=== PATIENT | female | born 1960 | race Caucasian/White ===

== ENCOUNTER 2018-01-29 08:57 | Emergency (ER) ==
[2018-01-29 09:13] VITALS: BP 152/95; TEMP 97.2; BMI 29.0
--- NOTE | 2018-01-29 10:02 | DI ---
EXAM: Radiographs, right ankle HISTORY: Initial presentation for right ankle injury. COMPARISON: None available. TECHNIQUE: Three views. FINDINGS: There is suggestion of a tiny osseous fragment just distal to the tip of the lateral malle olus. There is lateral ankle soft tissue swelling. No other fractures are seen. Degenerative asif es present throughout the dorsal aspect of the hindfoot and midfoot. IMPRESSION: Suspect tiny displaced chip fracture of the lateral malleolus.
--- NOTE | 2018-01-29 10:03 | ED.PDOC ---
General ED Provider: Dr. SAMANTHA SANDERS Chief Complaint: Ankle Pain/Injury Stated Complaint: ankle pain right side Time Seen by Physician: 09:00 (denied any other injury/pain) Information Source: Patient Exam Limitations: No limitations Primary Care Provider: YESY FRANKLIN Nursing and Triage Documentation Reviewed and Agree: Yes Reviewed sepsis parameters & appropriate labs ordered?: Yes System Inflammatory Response Syndrome: Not Applicable Sepsis Protocol: For patient's 13 years and over: Temp is 96.8 and below OR 101 and greater Pulse >90 BPM Resp >20/minute Acutely Altered Mental Status Are patient's symptoms suggestive of a new infection, such as: -Pneumonia -Skin, Soft Tissue -Endocarditis -UTI -Bone, Joint Infection -Implantable Device -Acute Abdominal Infection -Wound Infection -Meningitis -Blood Stream Catheter Infection -Unknown Musculoskeletal Complaint Exam - Ankle/Foot Complaint/Exam Location of Injury: Reports: Right, Ankle, Foot Mechanism of Injury: Reports: Trauma (rolled ankle) Onset/Duration: 3 days ago Symptoms Are: Reports: Still present Onset of Pain: Reports: Immediate Initial Severity: Moderate Current Severity: Moderate Location: Reports: Discrete Character: Reports: Aching, Spasmodic Alleviating: Reports: Rest Aggravating: Reports: Movement Able to Bear Weight: Yes Associated Signs and Symptoms: Reports: Swelling, Redness, Bruising. Denies: Fever, Weakness, Numbness, Tingling (see photos) Gout Risk Factors: Reports: >40 years old Related Surgical History: Reports: None Achilles Tendon Abnormality: No Tenderness: Present: Lateral malleolus Differential Diagnosis: Closed Fracture, Sprain, Strain Review of Systems - Review Of Systems Constitutional: Reports: No symptoms Eyes: Reports: No symptoms Ears, Nose, Mouth, Throat: Reports: No symptoms Respiratory: Reports: No symptoms Cardiac: Reports: No symptoms GI: Reports: No symptoms : Reports: No symptoms Musculoskeletal: Reports: Joint pain (right ankle ) Skin: Reports: No symptoms Neurological: Reports: No symptoms Endocrine: Reports: No symptoms Hematologic/Lymphatic: Reports: No symptoms All Other Systems: Reviewed and Negative Past Medical History - Past Medical History Previously Healthy: Yes Endocrine: Reports: Dyslipidemia Cardiovascular: Reports: Hypertension Respiratory: Reports: None Hematological: Reports: None Gastrointestinal: Reports: None Genitourinary: Reports: None Neuro/Psych: Reports: None Musculoskeletal: Reports: None Cancer: Reports: None Last Menstrual Period: menopause - Surgical History General Surgical History: Reports: None - Family History Family History: Reports: None - Social History Smoking Status: Current every day smoker, Light tobacco smoker Hx Substance Use: Yes Alcohol Screening: None Physical Exam - Physical Exam Appearance: Well-appearing, No pain distress, Well-nourished Eyes: TUYET, EOMI, Conjunctiva clear ENT: Ears normal, Nose normal, Oropharynx normal Respiratory: Airway patent, Breath sounds clear, Breath sounds equal, Respirations nonlabored Cardiovascular: RRR, Pulses normal, No rub, No murmur GI/: Soft, Nontender, No masses, Bowel sounds normal, No Organomegaly Musculoskeletal: Limited ROM, Edema (perfecto ) Skin: Warm, Dry, Normal color Neurological: Sensation intact, Motor intact, Reflexes intact, Cranial nerves intact, Alert, Oriented Psychiatric: Affect appropriate, Mood appropriate Critical Care Note - Critical Care Note Total Time (mins): 0 Course - Course Orders, Labs, Meds: Orders Category Date Time Status ANKLE, RIGHT MIN 3 VIEWS Stat RADS 01/29/18 09:08 Taken FOOT, RIGHT 3 VIEWS Stat RADS 01/29/18 09:08 Taken Vital Signs: Temp Pulse Resp BP Pulse Ox 01/29/18 08:58 97.2 F L 97 H 16 152/95 H 98 Departure - Departure Time of Disposition: 11:00 Disposition: HOME SELF-CARE Discharge Problem: Right ankle sprain Qualifiers: Involved ligament of ankle: unspecified ligament Instructions: Ankle Sprain (ED) Condition: Good Pt referred to PMD for follow-up: Yes IPMP verified?: No Additional Instructions: Please call your Family Physician as soon as possible to schedule a follow-up appointment.use crutches at all times se your MD if pain and discomfort persists NEED MRI Allergies/Adverse Reactions: Allergies No Known Drug Allergies Adverse Reaction (Verified 01/29/18 09:05) Home Medications: Ambulatory Orders Nifedipine 60 mg PO DAILY 03/05/13 Gabapentin 300 mg PO TID 02/01/14 Tramadol HCl [Ultram] 50 - 100 mg PO Q8H PRN 02/01/14 Aspirin [Aspirin EC] 81 mg PO DAILY 01/29/18 Cholecalciferol (Vitamin D3) [Vitamin D3] 2,000 unit PO DAILY 01/29/18 Doxepin HCl 25 mg PO BEDTIME 01/29/18 Fluticasone Propionate [Flonase] 2 spray NS DAILY 01/29/18 Hydrocodone/Acetaminophen [[place] 10-325 Tablet] 1 each PO Q8HR #12 tablet Loratadine 10 mg PO DAILY 01/29/18 Multivitamin with Minerals [Daily Vitamin Formula-Minerals] 1 each PO DAILY 02/10 [place]-3/Dha/Epa/Fish Oil [Fish Oil 1,000 mg Softgel] 2 each PO DAILY 01/29/18 Paroxetine HCl 10 mg PO DAILY 01/29/18 Pravastatin Sodium [Pravachol] 40 mg PO DAILY 01/29/18 Disposition Discussed With: Patient
--- NOTE | 2018-01-29 10:06 | DI ---
EXAM: Right foot three view HISTORY: Injury COMPARISON: None FINDINGS/IMPRESSION: No fracture or dislocation. Moderate arthropathy of the midfoot. Small planta r calcaneal spur. No focal soft tissue abnormality.
== END 2018-01-29 10:35 | disposition home or self-care (01) ==
LOC: ED 08:57
DX: S82.61XA Displaced fracture of lateral malleolus of right fibula, initial encounter for closed fracture (principal); F17.210 Nicotine dependence, cigarettes, uncomplicated
CPT/HCPCS: 99283

== ENCOUNTER 2018-05-27 12:45 | Emergency (ER) ==
[2018-05-27 13:21] VITALS: BP 176/104; TEMP 97; BMI 27.5
--- NOTE | 2018-05-27 15:22 | CT ---
EXAM: CT of the head without contrast History: Dizziness, head trauma. Comparison: Head CT 03/01/2014 Technique: Multiplanar CT images through the head were obtained without the administration of IV con trast Findings: The visualized paranasal sinuses and mastoid air cells are clear in general. No acute calv arial abnormalities. Intracranially the ventricular and cisternal spaces are normal in size, shape and configuration for a patient of this age. No dominant mass or midline shift. No hydrocephalous. No acute intracranial hemorrhage or abnormal extraaxial fluid collections. Impression: No acute intracranial process
--- NOTE | 2018-05-27 16:36 | ED.PDOC ---
General ED Provider: Dr. IGLESIA BURCH Chief Complaint: Fall Stated Complaint: Soft scalp injury to lt parietal occipital region . Patient indicated in January she injured her Rt ankle resulting in weakness. Has bilat peripheral neruopathy. She stated she was decended steps and slipped.Caught herself and struck the back of her head in the rt parietal region resuling in pain and swelling. Has been experiencing dizziness and a "mushy feeling" along rt parietal occipital region. 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 Time Seen by Physician: 14:15 Mode of Arrival: Walk-In Information Source: Patient Exam Limitations: No limitations Primary Care Provider: YESY FRANKLIN Nursing and Triage Documentation Reviewed and Agree: Yes Does patient meet sepsis criteria?: No If yes, has appropriate treatment been initiated?: No System Inflammatory Response Syndrome: Not Applicable Sepsis Protocol: For patient's 13 years and over: Temp is 96.8 and below OR 101 and greater Pulse >90 BPM Resp >20/minute Acutely Altered Mental Status Are patient's symptoms suggestive of a new infection, such as: -Pneumonia -Skin, Soft Tissue -Endocarditis -UTI -Bone, Joint Infection -Implantable Device -Acute Abdominal Infection -Wound Infection -Meningitis -Blood Stream Catheter Infection -Unknown Review of Systems - Review Of Systems Constitutional: Reports: No symptoms Eyes: Reports: No symptoms Ears, Nose, Mouth, Throat: Reports: No symptoms Respiratory: Reports: No symptoms Cardiac: Reports: No symptoms GI: Reports: No symptoms : Reports: No symptoms Musculoskeletal: Reports: No symptoms Skin: Reports: No symptoms Neurological: Reports: No symptoms Endocrine: Reports: No symptoms Hematologic/Lymphatic: Reports: No symptoms All Other Systems: Reviewed and Negative Past Medical History - Past Medical History Previously Healthy: Yes Endocrine: Reports: Dyslipidemia Cardiovascular: Reports: Hypertension Respiratory: Reports: None Hematological: Reports: None Gastrointestinal: Reports: None Genitourinary: Reports: None Neuro/Psych: Reports: None Musculoskeletal: Reports: None Cancer: Reports: None Last Menstrual Period: n/a - Surgical History General Surgical History: Reports: None - Family History Family History: Reports: None - Social History Smoking Status: Current every day smoker, Light tobacco smoker Hx Substance Use: Yes Alcohol Screening: None Physical Exam - Physical Exam Appearance: Well-appearing, No pain distress, Well-nourished Ill-appearing: Mild Pain Distress: Mild Eyes: TUYET, EOMI, Conjunctiva clear ENT: Ears normal, Nose normal, Oropharynx normal Respiratory: Airway patent, Breath sounds clear, Breath sounds equal, Respirations nonlabored Cardiovascular: RRR, Pulses normal, No rub, No murmur GI/: Soft, Nontender, No masses, Bowel sounds normal, No Organomegaly Musculoskeletal: Normal strength, ROM intact, No edema, No calf tenderness, Edema (rt scalp parietal region) Skin: Warm, Dry, Normal color Neurological: Sensation intact, Motor intact, Reflexes intact, Cranial nerves intact, Alert, Oriented Psychiatric: Affect appropriate, Mood appropriate Interpretation - Radiology Interpretation Radiology Results: Negative Exam Interpreted: CT Scan Critical Care Note - Critical Care Note Total Time (mins): 0 Course - Course Hematology/Chemistry: 05/27/18 15:00 05/27/18 15:00 Orders, Labs, Meds: Lab Review 05/27/18 05/27/18 15:00 15:00 WBC 9.03 RBC 4.71 Hgb 15.6 Hct 45.3 MCV 96.2 MCH 33.1 H MCHC 34.4 RDW Coeff of Doyle 13.2 Plt Count 276 Immature Gran % (Auto) 0.2 Neut % (Auto) 49.6 Lymph % (Auto) 39.9 [place] % (Auto) 7.1 Eos % (Auto) 2.8 Baso % (Auto) 0.4 Immature Gran # (Auto) 0.0 Neut # (Auto) 4.5 Lymph # (Auto) 3.6 H Bennett # (Auto) 0.6 Eos # (Auto) 0.3 Baso # (Auto) 0.0 Sodium 138.3 Potassium 4.24 Chloride 101.2 Carbon Dioxide 29.6 Anion Gap 11.74 BUN 14.4 Creatinine 0.81 Estimated GFR (MDRD) 73.00 BUN/Creatinine Ratio 17.77 Glucose 93.7 Calcium 10.58 H Total Bilirubin 0.53 AST 80.4 H ALT 42.0 H Alkaline Phosphatase 114.5 Total Protein 8.26 H Albumin 5.04 H Globulin 3.22 Albumin/Globulin Ratio 1.56 Orders Category Date Time Status CBC W/ AUTO DIFF Stat LAB 05/27/18 15:00 Completed CMP [COMPREHENSIVE METABOLIC PANEL] Stat LAB 05/27/18 15:[address] HEAD W/O CONTRAST Stat RADS 05/27/18 14:37 Completed Vital Signs: Temp Pulse Resp BP Pulse Ox 05/27/18 13:16 97.0 F L 78 20 176/104 H 97 Departure - Departure Time of Disposition: 16:15 Disposition: HOME SELF-CARE Discharge Problem: Scalp contusion, Dizziness, Hypercalcemia, Elevated liver enzymes, Hyperproteinemia Instructions: Scalp Contusion in Adults (ED), Hypercalcemia (ED) Condition: Good Pt referred to PMD for follow-up: Yes IPMP verified?: No Additional Instructions: Schedule apt to see PCP for re evaluation of current condition Evaluation of elevated calcium, protein levels and liver enzmes Allergies/Adverse Reactions: Allergies No Known Drug Allergies Adverse Reaction (Verified 05/27/18 13:21) Home Medications: Ambulatory Orders Nifedipine 60 mg PO DAILY 03/05/13 Gabapentin 300 mg PO TID 02/01/14 Tramadol HCl [Ultram] 50 - 100 mg PO Q8H PRN 02/01/14 Aspirin [Aspirin EC] 81 mg PO DAILY 01/29/18 Cholecalciferol (Vitamin D3) [Vitamin D3] 2,000 unit PO DAILY 01/29/18 Doxepin HCl 25 mg PO BEDTIME 01/29/18 Fluticasone Propionate [Flonase] 2 spray NS DAILY 01/29/18 Hydrocodone/Acetaminophen [[place] 10-325 Tablet] 1 each PO Q8HR #12 tablet Loratadine 10 mg PO DAILY 01/29/18 Multivitamin with Minerals [Daily Vitamin Formula-Minerals] 1 each PO DAILY 02/10 [place]-3/Dha/Epa/Fish Oil [Fish Oil 1,000 mg Softgel] 2 each PO DAILY 01/29/18 Paroxetine HCl 10 mg PO DAILY 01/29/18 Pravastatin Sodium [Pravachol] 40 mg PO DAILY 01/29/18 Transfer Form Completed: Yes Disposition Discussed With: Patient
== END 2018-05-27 17:06 | disposition home or self-care (01) ==
LOC: ED 12:45
DX: S00.03XA Contusion of scalp, initial encounter (principal); E88.09 Other disorders of plasma-protein metabolism, not elsewhere classified; E83.52 Hypercalcemia; R94.5 Abnormal results of liver function studies; R42 Dizziness and giddiness; I10 Essential (primary) hypertension; E78.5 Hyperlipidemia, unspecified; Z79.899 Other long term (current) drug therapy; W10.9XXA Fall (on) (from) unspecified stairs and steps, initial encounter; F17.210 Nicotine dependence, cigarettes, uncomplicated
CPT/HCPCS: 36415; 80053; 85025; 99283

== ENCOUNTER 2018-11-09 12:59 | Emergency (ER) ==
[2018-11-09 13:08] VITALS: BP 158/88; TEMP 97.5; BMI 26.2
== END 2018-11-09 14:37 | disposition left against medical advice (07) ==
LOC: ED 12:59
DX: R42 Dizziness and giddiness (principal); R53.1 Weakness; F17.210 Nicotine dependence, cigarettes, uncomplicated; M54.9 Dorsalgia, unspecified

== ENCOUNTER 2018-11-11 11:53 | Emergency (ER) ==
[2018-11-11 11:53] VITALS: BMI 26.2
[2018-11-11 12:02] VITALS: BP 143/79; TEMP 98.2
--- NOTE | 2018-11-11 12:19 | ED.PDOC ---
General ED Provider: Dr. IGLESIA RODRIGUEZ MD Chief Complaint: Non-specific Complaint Stated Complaint: diarrhea and nausea z 1 wek Time Seen by Physician: 12:11 Mode of Arrival: Walk-In Information Source: Patient Exam Limitations: No limitations Nursing and Triage Documentation Reviewed and Agree: Yes Does patient meet sepsis criteria?: No If yes, has appropriate treatment been initiated?: Yes System Inflammatory Response Syndrome: Not Applicable Sepsis Protocol: For patient's 13 years and over: Temp is 96.8 and below OR 101 and greater Pulse >90 BPM Resp >20/minute Acutely Altered Mental Status Are patient's symptoms suggestive of a new infection, such as: -Pneumonia -Skin, Soft Tissue -Endocarditis -UTI -Bone, Joint Infection -Implantable Device -Acute Abdominal Infection -Wound Infection -Meningitis -Blood Stream Catheter Infection -Unknown Review of Systems - Review Of Systems Constitutional: Reports: No symptoms Eyes: Reports: No symptoms Ears, Nose, Mouth, Throat: Reports: No symptoms Respiratory: Reports: No symptoms Cardiac: Reports: No symptoms GI: Reports: Diarrhea, Nausea : Reports: No symptoms Musculoskeletal: Reports: No symptoms Skin: Reports: No symptoms Neurological: Reports: No symptoms Endocrine: Reports: No symptoms Hematologic/Lymphatic: Reports: No symptoms All Other Systems: Reviewed and Negative Past Medical History - Past Medical History Previously Healthy: Yes Endocrine: Reports: Dyslipidemia Cardiovascular: Reports: Hypertension Respiratory: Reports: None Hematological: Reports: None Gastrointestinal: Reports: None Genitourinary: Reports: None Neuro/Psych: Reports: None Musculoskeletal: Reports: None Cancer: Reports: None Last Menstrual Period: unknown - Surgical History General Surgical History: Reports: None - Family History Family History: Reports: None - Social History Smoking Status: Current every day smoker, Light tobacco smoker Hx Substance Use: No Alcohol Screening: None Physical Exam - Physical Exam Appearance: Well-nourished, Obese Ill-appearing: Mild Pain Distress: None Eyes: TUYET, EOMI, Conjunctiva clear ENT: Ears normal, Nose normal, Oropharynx normal Neck: Supple Respiratory: Airway patent, Breath sounds clear, Breath sounds equal, Respirations nonlabored Cardiovascular: RRR, Pulses normal, No rub, No murmur, Tachycardia GI/: Soft, Nontender, No masses, Bowel sounds normal, No Organomegaly Musculoskeletal: Normal strength, ROM intact, No edema, No calf tenderness Skin: Warm, Dry, Normal color Neurological: Sensation intact, Motor intact, Reflexes intact, Cranial nerves intact, Alert, Oriented Critical Care Note - Critical Care Note Total Time (mins): 0 Course - Course Hematology/Chemistry: 11/11/18 12:30 11/11/18 12:30 Orders, Labs, Meds: Lab Review 11/11/18 11/11/18 12:30 12:30 WBC 6.29 RBC 4.15 L Hgb 14.0 Hct 40.0 MCV 96.4 MCH 33.7 H MCHC 35.0 RDW Coeff of [place] 13.2 Plt Count 246 Immature Gran % (Auto) 0.3 Neut % (Auto) 62.5 Lymph % (Auto) 26.7 [place] % (Auto) 8.9 Eos % (Auto) 1.1 Baso % (Auto) 0.5 Immature Gran # (Auto) 0.0 Neut # (Auto) 3.9 Lymph # (Auto) 1.7 [place] # (Auto) 0.6 Eos # (Auto) 0.1 Baso # (Auto) 0.0 Sodium 135.5 Potassium 3.68 Chloride 99.8 Carbon Dioxide 26.1 Anion Gap 13.28 BUN 18.1 H Creatinine 0.82 Estimated GFR (MDRD) 72.00 BUN/Creatinine Ratio 22.07 Glucose 133.1 H Calcium 10.09 Total Bilirubin 0.65 AST 50.0 H ALT 47.3 H Alkaline Phosphatase 91.0 Total Protein 7.55 Albumin 4.62 Globulin 2.93 Albumin/Globulin Ratio 1.57 Orders Category Date Time Status IV ACCESS ONCE CARE 11/11/18 12:19 Active CBC W/ AUTO DIFF Stat LAB 11/11/18 12:30 Completed CMP [COMPREHENSIVE METABOLIC PANEL] Stat LAB 11/11/18 12:30 Completed Ondansetron HCl/Pf [Zofran 4 mg/2 ml] MEDS 11/11/18 14:02 Discontinued 4 mg IVP ONCE STA Ringers Lactated Solution [Lactated Ringers] 1,000 ml MEDS 11/11/18 12:20 Discontinued IV BOLUS Medications Discontinued Medications Generic Name Dose Route Start Last Admin Trade Name Freq PRN Reason Stop Dose Admin Lactated Ringer's 1,000 mls @ 1,000 mls/hr 11/11/18 12:20 11/11/18 12:50 Lactated Ringers IV 11/11/18 13:19 1,000 mls/hr BOLUS STA Administration Ondansetron HCl 4 mg 11/11/18 14:02 11/11/18 14:07 Zofran 4 Mg/2 Ml IVP 11/11/18 14:03 4 mg ONCE STA Administration Vital Signs: Temp Pulse Resp BP Pulse Ox 11/11/18 11:53 98.2 F 111 H 20 143/79 H 98 Departure - Departure Time of Disposition: 14:45 Disposition: HOME SELF-CARE Discharge Problem: Gastroenteritis Instructions: Gastroenteritis (ED) Condition: Good Pt referred to PMD for follow-up: Yes IPMP verified?: No Prescriptions: Promethazine HCl [Phenergan Tab] 25 mg PO Q6H 7 Days #10 tablet NS Allergies/Adverse Reactions: Allergies No Known Drug Allergies Adverse Reaction (Verified 11/11/18 12:02) Home Medications: Ambulatory Orders Nifedipine 90 mg PO DAILY 03/05/13 Gabapentin 300 mg PO TID 02/01/14 Aspirin [Aspirin EC] 81 mg PO DAILY 01/29/18 Cholecalciferol (Vitamin D3) [Vitamin D3] 2,000 unit PO DAILY 01/29/18 Fluticasone Propionate [Flonase] 2 spray NS DAILY 01/29/18 Multivitamin with Minerals [Daily Vitamin Formula-Minerals] 1 each PO DAILY 02/10 [place]-3/Dha/Epa/Fish Oil [Fish Oil 1,000 mg Softgel] 2 each PO DAILY 01/29/18 Paroxetine HCl 20 mg PO DAILY 01/29/18 Pravastatin Sodium [Pravachol] 40 mg PO DAILY 01/29/18 Zolpidem Tartrate 10 mg PO BEDTIME 11/09/18 Promethazine HCl [Phenergan Tab] 25 mg PO Q6H 7 Days #10 tablet NS 11/11/18
[2018-11-11] MEDS ORDERED: LACTATED RINGERS 1,000 ML IV STA (12:20)
[2018-11-11] MEDS ORDERED: ZOFRAN 4 MG/2 ML IVP STA (14:02)
== END 2018-11-11 14:47 | disposition home or self-care (01) ==
LOC: ED 11:53
DX: R19.7 Diarrhea, unspecified (principal); R11.0 Nausea; Z72.0 Tobacco use; K52.9 Noninfective gastroenteritis and colitis, unspecified
CPT/HCPCS: 36415; 80053; 85025; 96361; 96374; 99283

== ENCOUNTER 2018-11-30 08:09 | Emergency (ER) ==
[2018-11-30 08:13] VITALS: BP 183/130; TEMP 97.5; BMI 26.5
--- NOTE | 2018-11-30 09:17 | CT ---
EXAM: CT scan of the abdomen and pelvis without contrast History pain TECHNIQUE: Helical imaging of the abdomen pelvis was performed without contrast. 3 mm thin axial im ages and coronal and sagittal reconstructions were provided for interpretation. Comparison CT scan of the abdomen and pelvis without contrast dated 03/01/2014. FINDINGS: The liver, spleen, pancreas, adrenal glands and kidneys appear normal. The proximal urete rs are normal size. There is a distal left ureteral calculus seen on axial image number 130. The le mirna measures approximately 3 mm AP, 2-3 mm transverse, 2 mm in height. There is no significant dila tation of the left ureter or calyces of the left kidney. The small and large bowel loops are normal caliber. There is no free air. The helical images obtained through the pelvis demonstrate a normal appearance of the rectum, urinary bladder. There is no free fluid seen within the pelvis. Scattered diverticula are seen within the descending colon and sigmoid colon without acute inflammation. Lung bases are clear. No lytic or bl astic lesions are seen within the osseous structures. The appendix appears normal. IMPRESSION: There is a small distal left ureteral calculus measuring up to 3 mm AP maximum not causi ng hydronephrosis or dilatation of the left ureter. There is no bowel obstruction. Mild diverticular disease of the distal colon without acute formation.
--- NOTE | 2018-11-30 09:35 | ED.PDOC ---
General ED Provider: Dr. SAMANTHA SANDERS Chief Complaint: Nausea/Vomiting Stated Complaint: NAUSEA, VOMITING, ANXIETY Time Seen by Physician: 08:12 (SEEN WITH NURSE AT ALL TIMES NO INJURY TO THE ABDOMEN ) Mode of Arrival: Walk-In Information Source: Patient Primary Care Provider: YESY FRANKLIN Referred to ED by: Other (UNDER STRESS DUE TO FINANCES ) Nursing and Triage Documentation Reviewed and Agree: Yes Does patient meet sepsis criteria?: No System Inflammatory Response Syndrome: Not Applicable Sepsis Protocol: For patient's 13 years and over: Temp is 96.8 and below OR 101 and greater Pulse >90 BPM Resp >20/minute Acutely Altered Mental Status Are patient's symptoms suggestive of a new infection, such as: -Pneumonia -Skin, Soft Tissue -Endocarditis -UTI -Bone, Joint Infection -Implantable Device -Acute Abdominal Infection -Wound Infection -Meningitis -Blood Stream Catheter Infection -Unknown GI Complaint Exam - Abdominal Pain Complaint/Exam Onset: Gradual Duration: 1 DAY Symptoms Are: Still present Timing: Intermittent Initial Severity: Mild Current Severity: Mild Location of Pain: Diffuse Character: Reports: Dull Aggravating: Reports: None Alleviating: Reports: None Associated Signs and Symptoms: Reports: Nausea, Vomiting. Denies: Diaphoresis, Fever, Cough, Chest pain, Dizziness, Back pain, Constipation, Blood in stool, Dysuria, Urinary frequency, Decreased urine output, Decreased appetite, Vaginal bleeding, Vaginal discharge, Diarrhea, Sore throat, Decreased activity Related History: Reports: Similar episode AAA Risk Factors: Reports: None Cardiac Risk Factors: Reports: None Ectopic Risk Factors: Reports: None Ovarian Torsion Risk Factors: Reports: None Surgical Obstruction Risk Factors: Reports: None Related Surgical History: Reports: None Patient Rh Status: Unknown Abdominal Findings: Present: None Differential Diagnoses: Appendicitis, Bowel Obstruction, Constipation, Diverticulitis, Gastroenteritis, Hepatitis, Pancreatitis, Irritable Bowel Syndrome, Renal Colic, GB, PUD, UTI, Ovarian Cyst Review of Systems - Review Of Systems Constitutional: Reports: No symptoms Eyes: Reports: No symptoms Ears, Nose, Mouth, Throat: Reports: No symptoms Respiratory: Reports: No symptoms Cardiac: Reports: No symptoms GI: Reports: Abdominal pain : Reports: No symptoms Musculoskeletal: Reports: No symptoms Skin: Reports: No symptoms Neurological: Reports: No symptoms Endocrine: Reports: No symptoms Hematologic/Lymphatic: Reports: No symptoms All Other Systems: Reviewed and Negative Past Medical History - Past Medical History Previously Healthy: Yes Endocrine: Reports: Dyslipidemia Cardiovascular: Reports: Hypertension Respiratory: Reports: None Hematological: Reports: None Gastrointestinal: Reports: None Genitourinary: Reports: None Neuro/Psych: Reports: None Musculoskeletal: Reports: None Cancer: Reports: None Last Menstrual Period: none - Surgical History General Surgical History: Reports: None - Family History Family History: Reports: None - Social History Smoking Status: Current every day smoker, Light tobacco smoker Hx Substance Use: No Alcohol Screening: None Physical Exam - Physical Exam Appearance: Well-appearing, No pain distress, Well-nourished Eyes: TUYET, EOMI, Conjunctiva clear ENT: Ears normal, Nose normal, Oropharynx normal Respiratory: Airway patent, Breath sounds clear, Breath sounds equal, Respirations nonlabored Cardiovascular: RRR, Pulses normal, No rub, No murmur GI/: Soft, Nontender, No masses, Bowel sounds normal, No Organomegaly Musculoskeletal: Normal strength, ROM intact, No edema, No calf tenderness Skin: Warm, Dry, Normal color Neurological: Sensation intact, Motor intact, Reflexes intact, Cranial nerves intact, Alert, Oriented Psychiatric: Affect appropriate, Mood appropriate Interpretation - Radiology Interpretation Radiology Interpretation By: Radiologist Radiology Results: Positive (RENAL STONE 3MM LEFT SIDED) Critical Care Note - Critical Care Note Total Time (mins): 0 Course - Course Hematology/Chemistry: 11/30/18 08:48 11/30/18 08:48 Orders, Labs, Meds: Lab Review 11/30/18 11/30/18 11/30/18 08:45 08:45 08:48 WBC 7.80 RBC 4.22 Hgb 14.7 Hct 41.7 MCV 98.8 MCH 34.8 H MCHC 35.3 RDW Coeff of [place] 14.1 Plt Count 291 Immature Gran % (Auto) 0.1 Neut % (Auto) 69.8 Lymph % (Auto) 23.2 [place] % (Auto) 6.0 Eos % (Auto) 0.6 Baso % (Auto) 0.3 Immature Gran # (Auto) 0.0 Neut # (Auto) 5.4 Lymph # (Auto) 1.8 [place] # (Auto) 0.5 Eos # (Auto) 0.1 Baso # (Auto) 0.0 Sodium Potassium Chloride Carbon Dioxide Anion Gap BUN Creatinine Estimated GFR (MDRD) BUN/Creatinine Ratio Glucose Calcium Total Bilirubin AST ALT Alkaline Phosphatase Total Protein Albumin Globulin Albumin/Globulin Ratio Urine Color Yellow Urine Clarity Clear Urine pH 6.5 Ur Specific [place] 1.020 Urine Protein 1+ Urine Glucose (UA) Negative Urine Ketones Negative Urine Blood 1+ Urine Nitrite Negative Urine Bilirubin Negative Urine Urobilinogen 0.2 Ur Leukocyte Esterase Negative Urine Microscopic RBC 5-10 Urine Microscopic WBC 2-5 Ur Squamous Epith Cells 2-5 Urine Bacteria 1+ Urine Mucus Trace Influ A Molecular Assay Negative by naat Influ B Molecular Assay Negative by naat 11/30/18 08:48 WBC RBC Hgb Hct MCV MCH MCHC RDW Coeff of [place] Plt Count Immature Gran % (Auto) Neut % (Auto) Lymph % (Auto) [place] % (Auto) Eos % (Auto) Baso % (Auto) Immature Gran # (Auto) Neut # (Auto) Lymph # (Auto) [place] # (Auto) Eos # (Auto) Baso # (Auto) Sodium 137.1 Potassium 4.20 Chloride 98.2 Carbon Dioxide 26.7 Anion Gap 16.40 BUN 21.5 H Creatinine 0.71 Estimated GFR (MDRD) 85.00 BUN/Creatinine Ratio 30.28 Glucose 106.5 H Calcium 9.71 Total Bilirubin 0.91 AST 84.7 H ALT 54.4 H Alkaline Phosphatase 109.9 Total Protein 7.74 Albumin 5.16 H Globulin 2.58 Albumin/Globulin Ratio 2.00 Urine Color Urine Clarity Urine pH Ur Specific [place] Urine Protein Urine Glucose (UA) Urine Ketones Urine Blood Urine Nitrite Urine Bilirubin Urine Urobilinogen Ur Leukocyte Esterase Urine Microscopic RBC Urine Microscopic WBC Ur Squamous Epith Cells Urine Bacteria Urine Mucus Influ A Molecular Assay Influ B Molecular Assay Orders Category Date Time Status CBC W/ AUTO DIFF Stat LAB 11/30/18 08:39 Ordered COMPREHENSIVE METABOLIC PANEL Stat LAB 11/30/18 08:39 Ordered FLU A/B MOLECULAR Stat LAB 11/30/18 08:40 Uncollected URINALYSIS C & S IF INDICATED Stat LAB 11/30/18 08:39 Uncollected URINE CULTURE Stat LAB 11/30/18 09:[address] ABDOMEN/PELVIS WO CONTRAST Stat RADS 11/30/18 08:39 Ordered Vital Signs: Temp Pulse Resp BP Pulse Ox 11/30/18 08:10 97.5 F L 111 H 20 183/130 H 97 Departure - Departure Time of Disposition: 09:35 Disposition: HOME SELF-CARE Discharge Problem: Nausea, Vomiting, Anxiety Abdominal pain Qualifiers: Abdominal location: generalized Qualified Code(s): R10.84 - Generalized abdominal pain Instructions: Anxiety (ED), Abdominal Pain (ED) Condition: Good Pt referred to PMD for follow-up: Yes IPMP verified?: No Allergies/Adverse Reactions: Allergies No Known Drug Allergies Adverse Reaction (Verified 11/30/18 08:13) Home Medications: Ambulatory Orders Nifedipine 90 mg PO DAILY 03/05/13 Gabapentin 900 mg PO TID 02/01/14 Aspirin [Aspirin EC] 81 mg PO DAILY 01/29/18 Cholecalciferol (Vitamin D3) [Vitamin D3] 4,000 unit PO DAILY 01/29/18 Fluticasone Propionate [Flonase] 1 spray NS DAILY 01/29/18 Multivitamin with Minerals [Daily Vitamin Formula-Minerals] 1 each PO DAILY 02/10 [place]-3/Dha/Epa/Fish Oil [Fish Oil 1,000 mg Softgel] 2 each PO DAILY 01/29/18 Paroxetine HCl 20 mg PO DAILY 01/29/18 Pravastatin Sodium [Pravachol] 40 mg PO DAILY 01/29/18 Zolpidem Tartrate 10 mg PO BEDTIME PRN 11/09/18 Carboxymethylcellulose Sodium [Lubricant Eye Drops] 1 each OP QID PRN 11/30/18 Loratadine [Claritin] 10 mg PO DAILY 11/30/18 Disposition Discussed With: Patient
== END 2018-11-30 10:00 | disposition home or self-care (01) ==
LOC: ED 08:09
DX: R11.2 Nausea with vomiting, unspecified (principal); R10.84 Generalized abdominal pain; F41.9 Anxiety disorder, unspecified; E78.5 Hyperlipidemia, unspecified; I10 Essential (primary) hypertension; F17.210 Nicotine dependence, cigarettes, uncomplicated; Z79.899 Other long term (current) drug therapy
CPT/HCPCS: 36415; 80053; 80074; 81001; 85025; 87086; 87502; 99283

== ENCOUNTER 2019-01-05 13:45 | Emergency (ER) ==
[2019-01-05 13:51] VITALS: BP 156/109; TEMP 99.1; BMI 26.1
[2019-01-05] MEDS ORDERED: ZOFRAN 4 MG/2 ML IM STA (16:59)
[2019-01-05] MEDS ORDERED: MORPHINE 4 MG/ML SYRINGE IM STA (16:59)
--- NOTE | 2019-01-05 17:33 | CT ---
EXAM: CT scan of the abdomen and pelvis without contrast HISTORY: pain TECHNIQUE: Helical imaging of the abdomen pelvis was performed without contrast. 3 mm thin axial im ages and coronal and sagittal reconstructions were provided for interpretation. Comparison CT scan of the abdomen pelvis dated 11/30/2018. FINDINGS: The liver, spleen, pancreas, adrenal glands appear normal. The proximal ureters are cathleen l size. The small and large bowel loops are normal caliber. Scattered diverticula are seen within t he descending colon and sigmoid colon without acute inflammation. The appendix was not well seen. N o definite inflammatory changes are seen in the right lower quadrant. The helical images obtained through the pelvis demonstrate a normal appearance of the rectum, urinary bladder. There is no free fluid seen within the pelvis. There has been previous hysterectomy. [place]cepc[place] g bases are clear. No lytic or blastic lesions are seen within the osseous structures. IMPRESSION: There is no bowel obstruction or acute inflammatory change seen within the abdomen and p capo. Mild diverticular disease of the descending colon and sigmoid colon without acute formation. There is no ureteral obstruction.
--- NOTE | 2019-01-05 18:28 | ED.PDOC ---
General ED Provider: Dr. SAMANTHA SANDERS Chief Complaint: Abdominal Pain Stated Complaint: abdominal pain lower abdomen chronic Time Seen by Physician: 14:00 Mode of Arrival: Walk-In Information Source: Patient Exam Limitations: No limitations Primary Care Provider: YESY FRANKLIN Nursing and Triage Documentation Reviewed and Agree: Yes Does patient meet sepsis criteria?: No If yes, has appropriate treatment been initiated?: No System Inflammatory Response Syndrome: Not Applicable Sepsis Protocol: For patient's 13 years and over: Temp is 96.8 and below OR 101 and greater Pulse >90 BPM Resp >20/minute Acutely Altered Mental Status Are patient's symptoms suggestive of a new infection, such as: -Pneumonia -Skin, Soft Tissue -Endocarditis -UTI -Bone, Joint Infection -Implantable Device -Acute Abdominal Infection -Wound Infection -Meningitis -Blood Stream Catheter Infection -Unknown GI Complaint Exam - Abdominal Pain Complaint/Exam Onset: Gradual Symptoms Are: Still present Timing: Intermittent Initial Severity: Moderate Current Severity: Mild Location of Pain: LLQ, Suprapubic Character: Reports: Aching Aggravating: Reports: None Alleviating: Reports: None Associated Signs and Symptoms: Reports: Dysuria. Denies: Diaphoresis, Fever, Cough, Chest pain, Dizziness, Back pain, Constipation, Blood in stool, Urinary frequency, Decreased urine output, Decreased appetite, Vaginal bleeding, Vaginal discharge, Nausea, Vomiting, Diarrhea, Sore throat, Decreased activity Related History: Reports: Similar episode AAA Risk Factors: Reports: None Cardiac Risk Factors: Reports: Hypertension Ectopic Risk Factors: Reports: None Ovarian Torsion Risk Factors: Reports: None Surgical Obstruction Risk Factors: Reports: None Related Surgical History: Reports: None Patient Rh Status: Unknown Abdominal Findings: Present: None Review of Systems - Review Of Systems Constitutional: Reports: No symptoms Eyes: Reports: No symptoms Ears, Nose, Mouth, Throat: Reports: No symptoms Respiratory: Reports: No symptoms Cardiac: Reports: No symptoms GI: Reports: Abdominal pain : Reports: No symptoms Musculoskeletal: Reports: No symptoms Skin: Reports: No symptoms Neurological: Reports: No symptoms Endocrine: Reports: No symptoms Hematologic/Lymphatic: Reports: No symptoms All Other Systems: Reviewed and Negative Past Medical History - Past Medical History Previously Healthy: Yes Endocrine: Reports: Dyslipidemia Cardiovascular: Reports: Hypertension Respiratory: Reports: None Hematological: Reports: None Gastrointestinal: Reports: None Genitourinary: Reports: None Neuro/Psych: Reports: None Musculoskeletal: Reports: None Cancer: Reports: None Last Menstrual Period: na - Surgical History General Surgical History: Reports: None - Family History Family History: Reports: None - Social History Smoking Status: Current every day smoker, Light tobacco smoker Hx Substance Use: No Alcohol Screening: None - Immunizations Tetanus Shot up to Date: Yes Physical Exam - Physical Exam Appearance: Well-appearing, No pain distress, Well-nourished Eyes: TUYET, EOMI, Conjunctiva clear ENT: Ears normal, Nose normal, Oropharynx normal Respiratory: Airway patent, Breath sounds clear, Breath sounds equal, Respirations nonlabored Cardiovascular: RRR, Pulses normal, No rub, No murmur GI/: Soft, Nontender, No masses, Bowel sounds normal, No Organomegaly Musculoskeletal: Normal strength, ROM intact, No edema, No calf tenderness Skin: Warm, Dry, Normal color Neurological: Sensation intact, Motor intact, Reflexes intact, Cranial nerves intact, Alert, Oriented Psychiatric: Affect appropriate, Mood appropriate Interpretation - Radiology Interpretation Radiology Interpretation By: Radiologist Radiology Results: No acute changes Exam Interpreted: CT Scan Critical Care Note - Critical Care Note Total Time (mins): 0 Course - Course Orders, Labs, Meds: Lab Review 01/05/19 17:00 Urine Color Yellow Urine Clarity Cloudy Urine pH 5.5 Ur Specific [place] 1.015 Urine Protein 1+ Urine Glucose (UA) Negative Urine Ketones 1+ Urine Blood 2+ Urine Nitrite Negative Urine Bilirubin Negative Urine Urobilinogen 0.2 Ur Leukocyte Esterase 1+ Urine Microscopic RBC 0-2 Urine Microscopic WBC 2-5 Ur Squamous Epith Cells 10-20 Urine Bacteria 1+ Hyaline Casts 0-2 Orders Category Date Time Status URINALYSIS C & S IF INDICATED Stat LAB 01/05/19 17:00 Completed URINE CULTURE Stat LAB 01/05/19 17:26 Received Morphine Sulfate [Morphine 4 mg/ml Syringe] MEDS 01/05/19 16:59 Discontinued 4 mg IM ONCE STA Ondansetron HCl/Pf [Zofran 4 mg/2 ml] MEDS 01/05/19 16:59 Discontinued 4 mg IM ONCE STA CT ABD/PEL WO RENAL STONE PROT Stat RADS 01/05/19 16:58 Completed Medications Discontinued Medications Generic Name Dose Route Start Last Admin Trade Name Freq PRN Reason Stop Dose Admin Morphine Sulfate 4 mg 01/05/19 16:59 01/05/19 17:26 Morphine 4 Mg/Ml Syringe IM 01/05/19 17:00 Not Given ONCE STA Ondansetron HCl 4 mg 01/05/19 16:59 01/05/19 17:26 Zofran 4 Mg/2 Ml IM 01/05/19 17:00 Not Given ONCE STA Vital Signs: Temp Pulse Resp BP Pulse Ox 01/05/19 13:46 99.1 F 117 H 18 156/109 H 98 Departure - Departure Time of Disposition: 18:27 Disposition: HOME SELF-CARE Discharge Problem: Abdominal pain Instructions: Abdominal Pain (ED), Urinary Tract Infection in Women (ED) Condition: Good Pt referred to PMD for follow-up: Yes IPMP verified?: No Additional Instructions: Please call your Family Physician as soon as possible to schedule a follow-up appointment. Prescriptions: Sulfamethoxazole/Trimethoprim [Bactrim Ds 800/160 mg] 1 tab PO Q12HR #10 tablet Allergies/Adverse Reactions: Allergies No Known Drug Allergies Adverse Reaction (Verified 01/05/19 16:31) Home Medications: Ambulatory Orders Nifedipine 90 mg PO DAILY 03/05/13 Gabapentin 900 mg PO BID 02/01/14 Aspirin [Aspirin EC] 81 mg PO DAILY 01/29/18 Cholecalciferol (Vitamin D3) [Vitamin D3] 4,000 unit PO DAILY 01/29/18 Fluticasone Propionate [Flonase] 1 spray NS DAILY 01/29/18 Multivitamin with Minerals [Daily Vitamin Formula-Minerals] 1 each PO DAILY 02/10 [place]-3/Dha/Epa/Fish Oil [Fish Oil 1,000 mg Softgel] 2 each PO DAILY 01/29/18 Paroxetine HCl 20 mg PO DAILY 01/29/18 Carboxymethylcellulose Sodium [Lubricant Eye Drops] 1 each OP QID PRN 11/30/18 Loratadine [Claritin] 10 mg PO DAILY 11/30/18 Sulfamethoxazole/Trimethoprim [Bactrim Ds 800/160 mg] 1 tab PO Q12HR #10 tablet 01/05/19
== END 2019-01-05 18:37 | disposition home or self-care (01) ==
LOC: ED 13:45
DX: N39.0 Urinary tract infection, site not specified (principal); R10.30 Lower abdominal pain, unspecified; G89.29 Other chronic pain; I10 Essential (primary) hypertension; E78.5 Hyperlipidemia, unspecified; F17.210 Nicotine dependence, cigarettes, uncomplicated; Z79.899 Other long term (current) drug therapy
CPT/HCPCS: 74176; 81001; 87086; 99283

== ENCOUNTER 2019-01-31 11:51 | Emergency (ER) ==
[2019-01-31 12:03] VITALS: BP 123/81; TEMP 97.7; BMI 27.2
--- NOTE | 2019-01-31 12:55 | ED.PDOC ---
General ED Provider: Dr. IGLESIA BURCH Chief Complaint: Hypertension Stated Complaint: Sinus pressure, congestion and head fullness/HR has been elevated in to low 100s. LOTS of STRESS/FINANCIAL DIFFICULTIES/ Time Seen by Physician: 12:45 Mode of Arrival: Walk-In Information Source: Patient Exam Limitations: No limitations Nursing and Triage Documentation Reviewed and Agree: Yes Does patient meet sepsis criteria?: No System Inflammatory Response Syndrome: Not Applicable Sepsis Protocol: For patient's 13 years and over: Temp is 96.8 and below OR 101 and greater Pulse >90 BPM Resp >20/minute Acutely Altered Mental Status Are patient's symptoms suggestive of a new infection, such as: -Pneumonia -Skin, Soft Tissue -Endocarditis -UTI -Bone, Joint Infection -Implantable Device -Acute Abdominal Infection -Wound Infection -Meningitis -Blood Stream Catheter Infection -Unknown EENT Complaint Exam - Nasal Complaint/Exam Onset/Duration: several days Symptoms Are: Still present Timing: Constant Initial Severity: Moderate Current Severity: Moderate Location: Bilateral Aggravating: Reports: None Alleviating: Reports: None Associated Signs and Symptoms: Reports: Nasal congestion, Sinus pain, Nasal discharge Related History: Denies: Similar episode Nasal Surgical History: Reports: None Foreign Body Present: No Septal Hematoma: No Differential Diagnoses: Allergic Rhinitis, Sinusitis Review of Systems - Review Of Systems Constitutional: Reports: No symptoms Eyes: Reports: No symptoms Ears, Nose, Mouth, Throat: Reports: No symptoms, Nose discharge Respiratory: Reports: No symptoms Cardiac: Reports: No symptoms GI: Reports: No symptoms : Reports: No symptoms Musculoskeletal: Reports: No symptoms Skin: Reports: No symptoms Neurological: Reports: No symptoms Endocrine: Reports: No symptoms Hematologic/Lymphatic: Reports: No symptoms All Other Systems: Reviewed and Negative Past Medical History - Past Medical History Previously Healthy: Yes Endocrine: Reports: Dyslipidemia Cardiovascular: Reports: Hypertension Respiratory: Reports: None Hematological: Reports: None Gastrointestinal: Reports: None Genitourinary: Reports: None Neuro/Psych: Reports: None Musculoskeletal: Reports: None Cancer: Reports: None Last Menstrual Period: hysterectomy - Surgical History General Surgical History: Reports: None - Family History Family History: Reports: None - Social History Smoking Status: Current every day smoker Hx Substance Use: No Alcohol Screening: None - Immunizations Tetanus Shot up to Date: No Physical Exam - Physical Exam Appearance: Well-appearing Ill-appearing: None Pain Distress: None Eyes: TUYET, EOMI, Conjunctiva clear ENT: Ears normal, Oropharynx normal, Rhinorrhea Neck: Supple Respiratory: Airway patent, Breath sounds clear, Breath sounds equal, Respirations nonlabored, Crackles Cardiovascular: RRR, Pulses normal, No rub, No murmur GI/: Soft, Nontender, No masses, Bowel sounds normal, No Organomegaly Musculoskeletal: Normal strength, ROM intact, No edema, No calf tenderness Skin: Warm, Dry, Normal color Neurological: Sensation intact, Oriented Psychiatric: Affect appropriate Interpretation - Radiology Interpretation Exam Interpreted: CT Scan (maxillary and ethmoid sinus disease) Critical Care Note - Critical Care Note Total Time (mins): 0 Course - Course Hematology/Chemistry: 01/31/19 13:25 01/31/19 13:25 Vital Signs: Temp Pulse Resp BP Pulse Ox 01/31/19 11:54 97.7 F 110 H 18 123/81 98 Departure - Departure Time of Disposition: 14:30 Disposition: HOME SELF-CARE Discharge Problem: Sinusitis Instructions: Sinusitis (ED) Condition: Stable Pt referred to PMD for follow-up: Yes IPMP verified?: No Additional Instructions: Take meds as directed Follow up PCP in 2 wks Prescriptions: Amoxicillin/Potassium Clav [Augmentin 875-125 Tablet] 1 each PO BID #28 tablet Guaifenesin [Mucinex] 600 mg PO QID PRN #20 tab.er.12h PRN Reason: congestion Methylprednisolone [Medrol Dosepak] 4 mg PO DAILY #1 tab.ds.pk Allergies/Adverse Reactions: Allergies No Known Drug Allergies Adverse Reaction (Verified 01/31/19 12:09) Home Medications: Ambulatory Orders Nifedipine 90 mg PO DAILY 03/05/13 Gabapentin 900 mg PO BID 02/01/14 Aspirin [Aspirin EC] 81 mg PO DAILY 01/29/18 Cholecalciferol (Vitamin D3) [Vitamin D3] 4,000 unit PO DAILY 01/29/18 Fluticasone Propionate [Flonase] 1 spray NS DAILY 01/29/18 Multivitamin with Minerals [Daily Vitamin Formula-Minerals] 1 each PO DAILY 02/10 [place]-3/Dha/Epa/Fish Oil [Fish Oil 1,000 mg Softgel] 2 each PO DAILY 01/29/18 Carboxymethylcellulose Sodium [Lubricant Eye Drops] 1 each OP QID PRN 11/30/18 Loratadine [Claritin] 10 mg PO DAILY 11/30/18 Amoxicillin/Potassium Clav [Augmentin 875-125 Tablet] 1 each PO BID #28 tablet 01/31/19 Guaifenesin [Mucinex] 600 mg PO QID PRN #20 tab.er.12h 01/31/19 Methylprednisolone [Medrol Dosepak] 4 mg PO DAILY #1 tab.ds.pk 01/31/19 Ondansetron [Zofran Odt] 4 mg PO Q8H #12 tab.rapdis 02/18/19 Pantoprazole Sodium [Protonix] 40 mg PO ONCE #30 tablet. 02/18/19 Disposition Discussed With: Patient
--- NOTE | 2019-01-31 13:45 | CT ---
Exam: CT sinuses without intravenous contrast. Comparison: CT of the brain performed 05/27/2018. Reason for exam: Headache and sinus pressure FINDINGS: Small air-fluid levels are seen in both left and right maxillary sinuses. There is mild m ucosal thickening in the ethmoid sinuses. The frontal sinuses and sphenoid sinuses appear normally p neumatized. There is a normal appearing pneumatization of the mastoid air cells. No evidence of fac ial fracture or osseous erosion. Impression: Small air fluid levels in both left and right maxillary sinuses suggesting sinus disease. Mild mucosal thickening in the ethmoid sinuses. The remainder the paranasal sinuses and mastoid air cells appear normally pneumatized.
== END 2019-01-31 14:42 | disposition home or self-care (01) ==
LOC: ED 11:51
DX: J32.9 Chronic sinusitis, unspecified (principal); I10 Essential (primary) hypertension; F17.210 Nicotine dependence, cigarettes, uncomplicated
CPT/HCPCS: 36415; 80053; 80306; 81001; 84443; 85025; 93005; 93010; 99283

== ENCOUNTER 2019-02-18 20:30 | Emergency (ER) ==
[2019-02-18 20:36] VITALS: BP 153/83; TEMP 96.8; BMI 26.6
[2019-02-18] MEDS ORDERED: ZOFRAN 4 MG/2 ML IVP STA (20:48)
[2019-02-18] MEDS ORDERED: LACTATED RINGERS 1,000 ML IV STA (20:48)
--- NOTE | 2019-02-18 20:52 | ED.PDOC ---
General ED Provider: Dr. KATE CORTES Chief Complaint: Nausea/Vomiting Stated Complaint: Patient states that she is recovering Alcoholic who states that she relapsed today with a bottle of wine. She the started vomiting and has vomited 5 times today. Time Seen by Physician: 20:49 Mode of Arrival: Walk-In Information Source: Patient Nursing and Triage Documentation Reviewed and Agree: Yes Does patient meet sepsis criteria?: No System Inflammatory Response Syndrome: Not Applicable Sepsis Protocol: For patient's 13 years and over: Temp is 96.8 and below OR 101 and greater Pulse >90 BPM Resp >20/minute Acutely Altered Mental Status Are patient's symptoms suggestive of a new infection, such as: -Pneumonia -Skin, Soft Tissue -Endocarditis -UTI -Bone, Joint Infection -Implantable Device -Acute Abdominal Infection -Wound Infection -Meningitis -Blood Stream Catheter Infection -Unknown Review of Systems - Review Of Systems Constitutional: Reports: No symptoms Eyes: Reports: No symptoms Ears, Nose, Mouth, Throat: Reports: No symptoms Respiratory: Reports: No symptoms Cardiac: Reports: No symptoms GI: Reports: Abdominal pain, Nausea, Vomiting : Reports: No symptoms Musculoskeletal: Reports: Back pain Skin: Reports: No symptoms Neurological: Reports: Anxiety, Depressed, Emotional problems Endocrine: Reports: No symptoms Hematologic/Lymphatic: Reports: No symptoms All Other Systems: Reviewed and Negative Past Medical History - Past Medical History Previously Healthy: Yes Endocrine: Reports: Dyslipidemia Cardiovascular: Reports: Hypertension Respiratory: Reports: None Hematological: Reports: None Gastrointestinal: Reports: None Genitourinary: Reports: None Neuro/Psych: Reports: Anxiety, Depression, Other (insomina ) Musculoskeletal: Reports: None Cancer: Reports: None Last Menstrual Period: years ago Other Pertinent Past Medical History: Alcoholism - Surgical History General Surgical History: Reports: None - Family History Family History: Reports: None - Social History Smoking Status: Current every day smoker Hx Substance Use: No Alcohol Screening: Heavy - Immunizations Tetanus Shot up to Date: Yes Physical Exam - Physical Exam Appearance: Ill-appearing Ill-appearing: Mild Respiratory: Airway patent, Breath sounds clear, Breath sounds equal Cardiovascular: Tachycardia GI/: Soft, Tender (Epigastric area ) Skin: Warm, Dry Neurological: Alert, Oriented Psychiatric: Anxious, Depressed Critical Care Note - Critical Care Note Total Time (mins): 0 Course - Course Hematology/Chemistry: 02/18/19 21:05 02/18/19 21:05 Orders, Labs, Meds: Lab Review 02/18/19 02/18/19 21:05 21:05 WBC 6.59 RBC 4.47 Hgb 15.6 Hct 44.1 MCV 98.7 MCH 34.9 H MCHC 35.4 RDW Coeff of Doyle 12.4 Plt Count 172 Immature Gran % (Auto) 0.2 Neut % (Auto) 47.4 Lymph % (Auto) 44.2 [place] % (Auto) 7.0 Eos % (Auto) 0.6 Baso % (Auto) 0.6 Immature Gran # (Auto) 0.0 Neut # (Auto) 3.1 Lymph # (Auto) 2.9 [place] # (Auto) 0.5 Eos # (Auto) 0.0 Baso # (Auto) 0.0 Sodium 139.0 Potassium 4.08 Chloride 99.6 Carbon Dioxide 22.0 Anion Gap 21.48 BUN 20.5 H Creatinine 0.81 Estimated GFR (MDRD) 73.00 BUN/Creatinine Ratio 25.30 Glucose 110.1 H Calcium 10.02 Total Bilirubin 0.48 AST 47.6 H ALT 44.3 H Alkaline Phosphatase 97.8 Total Protein 7.87 Albumin 5.18 H Globulin 2.69 Albumin/Globulin Ratio 1.92 Amylase 60.8 Lipase 127.1 Orders Category Date Time Status ED ARTIFICIAL STONE SETTER APPLIED .ONCE EMERGENCY 02/18/19 20:48 Active ED IV/MEDIPORT/POWERPORT .ONCE EMERGENCY 02/18/19 20:48 Active AMYLASE Stat LAB 02/18/19 21:05 Completed CBC W/ AUTO DIFF Stat LAB 02/18/19 21:05 Completed COMPREHENSIVE METABOLIC PANEL Stat LAB 02/18/19 21:05 Completed LIPASE Stat LAB 02/18/19 21:05 Completed 0.9 % Sodium Chloride [Saline Flush] MEDS 02/18/19 20:48 Discontinued 1 syr IVF PRN PRN Ketorolac Tromethamine [Toradol] MEDS 02/18/19 21:53 Discontinued 30 mg IVP ONCE STA Ondansetron HCl/Pf [Zofran 4 mg/2 ml] MEDS 02/18/19 20:48 Discontinued 4 mg IVP ONCE STA Pantoprazole Sodium [Protonix IV] MEDS 02/18/19 21:59 Discontinued 40 mg IVP ONCE STA Ringers Lactated Solution [Lactated Ringers] 1,000 ml MEDS 02/18/19 20:48 Discontinued IV BOLUS Medications Discontinued Medications Generic Name Dose Route Start Last Admin Trade Name Freq PRN Reason Stop Dose Admin Lactated Ringer's 1,000 mls @ 1,000 mls/hr 02/18/19 20:48 02/18/19 21:20 Lactated Ringers IV 02/18/19 21:47 1,000 mls/hr BOLUS STA Administration Ketorolac Tromethamine 30 mg 02/18/19 21:53 02/18/19 22:02 Toradol IVP 02/18/19 21:54 30 mg ONCE STA Administration Ondansetron HCl 4 mg 02/18/19 20:48 02/18/19 21:20 Zofran 4 Mg/2 Ml IVP 02/18/19 20:49 4 mg ONCE STA Administration Pantoprazole Sodium 40 mg 02/18/19 21:59 02/18/19 22:07 Protonix Iv IVP 02/18/19 22:00 40 mg ONCE STA Administration Sodium Chloride 1 syr 02/18/19 20:48 02/18/19 22:08 Saline Flush IVF 1 syr PRN PRN Administration To flush IV Vital Signs: Temp Pulse Resp BP Pulse Ox 02/18/19 20:30 96.8 F L 112 H 20 153/83 H 96 Departure - Departure Time of Disposition: 22:22 Disposition: HOME SELF-CARE Discharge Problem: Back pain Qualifiers: Back pain location: low back pain Chronicity: chronic Back pain laterality: midline Sciatica presence: without sciatica Qualified Code(s): M54.5 - Low back pain Abdominal pain Qualifiers: Abdominal location: epigastric Qualified Code(s): R10.13 - Epigastric pain Alcoholic gastritis without bleeding Qualifiers: Chronicity: acute Qualified Code(s): K29.20 - Alcoholic gastritis without bleeding Instructions: Gastritis (ED), Alcohol Intoxication (ED), Back Pain (ED) Condition: Stable Pt referred to PMD for follow-up: Yes IPMP verified?: Yes (Got her last prescription of zolpidem recently ) Additional Instructions: Follow up with your PCP in 1-2 days Stop Drinking Alcohol. Prescriptions: Ondansetron [Zofran Odt] 4 mg PO Q8H #12 tab.rapdis Pantoprazole Sodium [Protonix] 40 mg PO ONCE #30 tablet.dr Allergies/Adverse Reactions: Allergies No Known Drug Allergies Adverse Reaction (Verified 01/31/19 12:09) Home Medications: Ambulatory Orders Nifedipine 90 mg PO DAILY 03/05/13 Gabapentin 900 mg PO BID 02/01/14 Aspirin [Aspirin EC] 81 mg PO DAILY 01/29/18 Cholecalciferol (Vitamin D3) [Vitamin D3] 4,000 unit PO DAILY 01/29/18 Fluticasone Propionate [Flonase] 1 spray NS DAILY 01/29/18 Multivitamin with Minerals [Daily Vitamin Formula-Minerals] 1 each PO DAILY 02/10 [place]-3/Dha/Epa/Fish Oil [Fish Oil 1,000 mg Softgel] 2 each PO DAILY 01/29/18 Carboxymethylcellulose Sodium [Lubricant Eye Drops] 1 each OP QID PRN 11/30/18 Loratadine [Claritin] 10 mg PO DAILY 11/30/18 Amoxicillin/Potassium Clav [Augmentin 875-125 Tablet] 1 each PO BID #28 tablet 01/31/19 Guaifenesin [Mucinex] 600 mg PO QID PRN #20 tab.er.12h 01/31/19 Methylprednisolone [Medrol Dosepak] 4 mg PO DAILY #1 tab.ds.pk 01/31/19 Ondansetron [Zofran Odt] 4 mg PO Q8H #12 tab.rapdis 02/18/19 Pantoprazole Sodium [Protonix] 40 mg PO ONCE #30 tablet. 02/18/19 Disposition Discussed With: Patient
[2019-02-18] MEDS ORDERED: TORADOL IVP STA (21:53)
[2019-02-18] MEDS ORDERED: PROTONIX IV IVP STA (21:59)
== END 2019-02-18 22:23 | disposition home or self-care (01) ==
LOC: ED 20:30
DX: K29.20 Alcoholic gastritis without bleeding (principal); M54.5 Low back pain; R10.13 Epigastric pain; I10 Essential (primary) hypertension; R00.0 Tachycardia, unspecified; F17.210 Nicotine dependence, cigarettes, uncomplicated; E78.5 Hyperlipidemia, unspecified; Z79.899 Other long term (current) drug therapy
CPT/HCPCS: 36415; 80053; 82150; 83690; 85025; 96361; 96374; 96375; 99283

== ENCOUNTER 2019-03-21 19:01 | Emergency (ER) ==
[2019-03-21 19:10] VITALS: BP 147/99; TEMP 97.6; BMI 25.9
[2019-03-21] MEDS ORDERED: ZOFRAN 4 MG/2 ML IVP STA (20:31)
[2019-03-21] MEDS ORDERED: SODIUM CHLORIDE 1,000 ML IV STA (20:31)
[2019-03-21] MEDS ORDERED: ROCEPHIN 1 GM PREMIX 1 GM in PREMIX 50 ML D5W 1 BAG IV STA (20:31)
[2019-03-21] MEDS ORDERED: ROCEPHIN 1 GM PREMIX 50 ML IV ONE (20:36)
--- NOTE | 2019-03-21 20:58 | CT ---
EXAM: CT of the abdomen pelvis without contrast History: Abdominal pain and vomiting. Comparison: CT abdomen pelvis 11/30/2018 Technique: Multiplanar CT images through the abdomen pelvis were obtained without the administration of IV contrast Findings: Lung bases are free of consolidation. No acute osseous abnormalities. Moderate to severe degenerative changes again seen within the lumbar spine. Gallbladder is mildly distended. No focal liver or splenic lesions. No peripancreatic inflammation. Adrenal glands are unremarkable. No renal stones and no hydronephrosis. No ureteral calculi. No bladder wall thickening. No bowel obstruction. Colonic diverticulosis. No free air and no ascites. The visualized appendix is not dilated or inflamed. No abdominal aortic aneurysm. No enlarged lym ph nodes. No bladder wall thickening. No perirectal inflammation. Uterus is not seen and likely ibrahim s been surgically removed. Impression: 1. No acute intra-abdominal or pelvic process. 2. Mild gallbladder distension. 3. Colonic diverticulosis
--- NOTE | 2019-03-21 21:05 | CT ---
EXAM: CT sinuses without contrast. HISTORY: Vomiting. PROCEDURE: Contiguous axial CT images of the sinuses without contrast with coronal and sagittal refo rmats. FINDINGS: Comparison made with CT of 03/07/2019. There are partial bilateral ethmoidectomies. There is trace mucosal thickening in the ethmoid air cells. The frontal sinuses, sphenoid sinus and maxil andrew sinuses are normal in appearance. The ostiomeatal complexes are patent. The nasal turbinates a re normal in appearance. There is mild bowing of the nasal septum to the right. The mastoid air francesca ls are normal in appearance. The orbits are normal in appearance. Impression: Minimal ethmoid sinusitis. Operative changes as described.
--- NOTE | 2019-03-21 21:32 | ED.PDOC ---
General ED Provider: Dr. IGLESAI HINTON-ER Chief Complaint: Nausea/Vomiting Stated Complaint: dedrick had sinus symptoms and left ear pain with vomiting Time Seen by Physician: 19:05 Mode of Arrival: Walk-In Information Source: Patient Exam Limitations: No limitations Nursing and Triage Documentation Reviewed and Agree: Yes Does patient meet sepsis criteria?: No System Inflammatory Response Syndrome: Not Applicable Sepsis Protocol: For patient's 13 years and over: Temp is 96.8 and below OR 101 and greater Pulse >90 BPM Resp >20/minute Acutely Altered Mental Status Are patient's symptoms suggestive of a new infection, such as: -Pneumonia -Skin, Soft Tissue -Endocarditis -UTI -Bone, Joint Infection -Implantable Device -Acute Abdominal Infection -Wound Infection -Meningitis -Blood Stream Catheter Infection -Unknown Respiratory Complaint Exam - Respiratory Complaint/Exam Onset/Duration: 3 days Symptoms Are: Still present Timing: Constant Initial Severity: Mild Current Severity: Mild Location: Chest Character: Reports: Non-productive cough Aggravating: Reports: URI Associated Signs and Symptoms: Reports: URI, Nasal congestion Home Oxygen Use: No Recent Stress Test: No Recent Echo/LV Function: No Current Antibiotic Use: No Current Asthma Medication Use: No Respiratory Distress: None Inadequate Respiratory Effort: No Dysphagia Present: No Stridor Present: No JVD Present: No Accessory Muscle Use: No Retractions: Not Present Diminished Breath Sounds: No Sinus Tenderness: None Grunting Respirations: No Kussmaul Respirations: No Differential Diagnoses: Sinusitis, URI Review of Systems - Review Of Systems Constitutional: Reports: No symptoms Eyes: Reports: No symptoms Ears, Nose, Mouth, Throat: Reports: Nose discharge Respiratory: Reports: Cough Cardiac: Reports: No symptoms GI: Reports: No symptoms : Reports: No symptoms Musculoskeletal: Reports: No symptoms Skin: Reports: No symptoms Neurological: Reports: No symptoms Endocrine: Reports: No symptoms Hematologic/Lymphatic: Reports: No symptoms All Other Systems: Reviewed and Negative Past Medical History - Past Medical History Previously Healthy: Yes Endocrine: Reports: Dyslipidemia Cardiovascular: Reports: Hypertension Respiratory: Reports: None Hematological: Reports: None Gastrointestinal: Reports: None Genitourinary: Reports: None Neuro/Psych: Reports: Anxiety, Depression, Other Musculoskeletal: Reports: None Cancer: Reports: None Last Menstrual Period: PT HAS HAD A HYSTERECTOMY Other Pertinent Past Medical History: Alcoholism - Surgical History General Surgical History: Reports: None - Family History Family History: Reports: None - Social History Smoking Status: Current every day smoker, Light tobacco smoker Hx Substance Use: Yes (IN THE PAST ALCOHOL) Alcohol Screening: None - Immunizations Tetanus Shot up to Date: (UNKOWN) Physical Exam - Physical Exam Appearance: Well-appearing, No pain distress, Well-nourished Eyes: TUYET, EOMI, Conjunctiva clear ENT: Rhinorrhea Neck: Supple Respiratory: Airway patent, Breath sounds clear, Breath sounds equal, Respirations nonlabored Cardiovascular: RRR, Pulses normal, No rub, No murmur GI/: Soft, Nontender, No masses, Bowel sounds normal, No Organomegaly Musculoskeletal: Normal strength, ROM intact, No edema, No calf tenderness Skin: Warm, Dry, Normal color Neurological: Sensation intact, Motor intact, Reflexes intact, Cranial nerves intact, Alert, Oriented Psychiatric: Affect appropriate, Mood appropriate Interpretation - Radiology Interpretation Radiology Interpretation By: Radiologist Radiology Results: Positive Exam Interpreted: CT Scan - EKG Interpretation Time of EKG #1: 21:39 Rate: Normal Rhythm: Sinus Ectopy: None [place]: [place] ST Segment: Normal Interpretation: nsr Re-Evaluation - Re-Evaluation Time of Re-Evaluation: 21:32 Status: Improved Vital Signs Stable: Yes Pain Level: 0 Appearance: NAD Lungs: Clear Skin: Warm and Dry Neuro: Alert and Oriented X3 CV: RRR Critical Care Note - Critical Care Note Total Time (mins): 0 Course - Course Hematology/Chemistry: 03/21/19 20:35 03/21/19 20:35 Orders, Labs, Meds: Lab Review 03/21/19 03/21/19 03/21/19 20:35 20:35 21:00 WBC 7.46 RBC 4.72 Hgb 16.1 H Hct 45.7 MCV 96.8 MCH 34.1 H MCHC 35.2 RDW Coeff of Doyle 12.3 Plt Count 259 Immature Gran % (Auto) 0.3 Neut % (Auto) 50.6 Lymph % (Auto) 42.4 [place] % (Auto) 5.9 Eos % (Auto) 0.4 Baso % (Auto) 0.4 Immature Gran # (Auto) 0.0 Neut # (Auto) 3.8 Lymph # (Auto) 3.2 [place] # (Auto) 0.4 Eos # (Auto) 0.0 Baso # (Auto) 0.0 Sodium 139.7 Potassium 4.14 Chloride 98.5 Carbon Dioxide 23.9 Anion Gap 21.44 BUN 22.7 H Creatinine 0.84 Estimated GFR (MDRD) 70.00 BUN/Creatinine Ratio 27.02 Glucose 111.1 H Calcium 10.15 Total Bilirubin 0.52 AST 39.1 H ALT 38.7 H Alkaline Phosphatase 90.8 Total Protein 7.80 Albumin 4.91 Globulin 2.89 Albumin/Globulin Ratio 1.69 Urine Color Yellow Urine Clarity Clear Urine pH 5.5 Ur Specific [place] >=1.030 Urine Protein Negative Urine Glucose (UA) Negative Urine Ketones Negative Urine Blood 2+ Urine Nitrite Negative Urine Bilirubin Negative Urine Urobilinogen 0.2 Ur Leukocyte Esterase Negative Urine Microscopic RBC 2-5 Urine Microscopic WBC 2-5 Ur Squamous Epith Cells 5-10 Urine Bacteria Trace Hyaline Casts 2-5 Orders Category Date Time Status ED IV/MEDIPORT/POWERPORT .ONCE EMERGENCY 03/21/19 20:31 Active CBC W/ AUTO DIFF Stat LAB 03/21/19 20:35 Completed COMPREHENSIVE METABOLIC PANEL Stat LAB 03/21/19 20:35 Completed URINALYSIS C & S IF INDICATED Stat LAB 03/21/19 21:00 Completed 0.9 % Sodium Chloride [Saline Flush] MEDS 03/21/19 20:31 Ordered 1 syr IVF PRN PRN Ceftriaxone/D5w 1 gm Premix [Rocephin 1 gm Premix] 1 gm MEDS 03/21/19 20:31 Discontinued Premix 50 ml D5w 1 bag IV ONCE Ceftriaxone/D5w 1 gm Premix [Rocephin 1 gm Premix] 50 MEDS 03/21/19 20:36 Discontinued ml IV .STK-MED Ondansetron HCl/Pf [Zofran 4 mg/2 ml] MEDS 03/21/19 20:31 Discontinued 4 mg IVP ONCE STA Sodium Chloride 0.9% [Sodium Chloride] 1,000 ml MEDS 03/21/19 20:[address] ABDOMEN/PELVIS WO CONTRAST Stat RADS 03/21/19 20:[address] SINUSES W/O CONTRAST Stat RADS 03/21/19 20:32 Completed Medications Generic Name Dose Route Start Last Admin Trade Name Freq PRN Reason Stop Dose Admin Sodium Chloride 1 syr 03/21/19 20:31 03/21/19 21:12 Saline Flush IVF 1 syr PRN PRN Administration To flush IV Discontinued Medications Generic Name Dose Route Start Last Admin Trade Name Mary PRN Reason Stop Dose Admin CEFTRIAXONE/D5W 1 GM PREMIX 1 50 mls @ 75 mls/hr 03/21/19 20:31 03/21/19 21: 15 gm/ Dextrose IV 03/21/19 21:10 75 mls/hr ONCE STA Administration Sodium Chloride 1,000 mls @ 1,000 mls/hr 03/21/19 20:31 03/21/19 21:12 Sodium Chloride IV 03/21/19 21:30 1,000 mls/hr BOLUS STA Administration Ondansetron HCl 4 mg 03/21/19 20:31 03/21/19 21:12 Zofran 4 Mg/2 Ml IVP 03/21/19 20:32 4 mg ONCE STA Administration Vital Signs: Temp Pulse Resp BP Pulse Ox 03/21/19 19:01 97.6 F 105 H 18 147/99 H 95 Departure - Departure Time of Disposition: 21:32 Disposition: HOME SELF-CARE Discharge Problem: Nausea, Vomiting Sinusitis Qualifiers: Sinusitis location: unspecified location Chronicity: acute Recurrence: not specified as recurrent Qualified Code(s): J01.90 - Acute sinusitis, unspecified Instructions: Acute Nausea and Vomiting (ED) Condition: Good Pt referred to PMD for follow-up: Yes IPMP verified?: No Additional Instructions: low fat diet--omnicef 300mg bid x 5 days---talk to your pcp about gb xrays Allergies/Adverse Reactions: Allergies No Known Drug Allergies Adverse Reaction (Verified 03/21/19 19:11) Home Medications: Ambulatory Orders Nifedipine 90 mg PO DAILY 03/05/13 Gabapentin 900 mg PO BID 02/01/14 Aspirin [Aspirin EC] 81 mg PO DAILY 01/29/18 Cholecalciferol (Vitamin D3) [Vitamin D3] 4,000 unit PO DAILY 01/29/18 Fluticasone Propionate [Flonase] 1 spray NS DAILY 01/29/18 Multivitamin with Minerals [Daily Vitamin Formula-Minerals] 1 each PO DAILY 02/10 [place]-3/Dha/Epa/Fish Oil [Fish Oil 1,000 mg Softgel] 2 each PO DAILY 01/29/18 Meclizine HCl [Antivert] 25 mg PO TID PRN #20 tablet 03/07/19 Paroxetine HCl [Paxil] 20 mg PO DAILY 03/07/19 Ondansetron [Zofran Odt] 8 mg PO Q8H PRN 03/21/19
== END 2019-03-21 22:58 | disposition home or self-care (01) ==
LOC: ED 19:01
DX: J01.90 Acute sinusitis, unspecified (principal); R11.2 Nausea with vomiting, unspecified; F17.210 Nicotine dependence, cigarettes, uncomplicated; Z79.899 Other long term (current) drug therapy
CPT/HCPCS: 36415; 80053; 81001; 82550; 84484; 85025; 93005; 93010; 96361; 96365; 96375; 99283

== ENCOUNTER 2019-03-30 | Emergency (ER) | END 2019-03-30 21:50 | disposition home or self-care (01) | CPT/HCPCS: 36415; 80053; 80306; 80307; 85025; 99284 ==